=== PATIENT | female | born 1955 | race African-American/Black ===

== ENCOUNTER 2018-11-14 17:23 | Emergency (ER) | payer BC ==
[~2018-11-14] VITALS: Ht 154.9 cm; Wt 63.0 kg
[~2018-11-14 17:23] MED LIST: ASPI-1393 PO; CO Q10 PO; CYAN10009 PO; NEBI5TAB3 PO; TRIA1TAB92 PO; [UNRECOGNIZED DRUG - OTHER] PO; [UNRECOGNIZED DRUG - OTHER] PO; [UNRECOGNIZED DRUG - OTHER] PO
[2018-11-14 17:31] VITALS: BP 156/70
== END 2018-11-14 19:17 | disposition home or self-care (01) ==
LOC: ER 17:23
DX: S62.615A Displaced fracture of proximal phalanx of left ring finger, initial encounter for closed fracture (principal); S62.617A Displaced fracture of proximal phalanx of left little finger, initial encounter for closed fracture; S01.511A Laceration without foreign body of lip, initial encounter; I10 Essential (primary) hypertension; Z98.890 Other specified postprocedural states; Z88.6 Allergy status to analgesic agent; Z88.8 Allergy status to other drugs, medicaments and biological substances; Z79.82 Long term (current) use of aspirin; Z79.899 Other long term (current) drug therapy; W01.0XXA Fall on same level from slipping, tripping and stumbling without subsequent striking against object, initial encounter; Y93.89 Activity, other specified; Y92.89 Other specified places as the place of occurrence of the external cause; Y99.8 Other external cause status
CPT/HCPCS: 29125; 73130; 99283

== ENCOUNTER → 2018-11-27 | Outpatient (CLI) | payer BC ==
[~2018-11-27] MED LIST changes: +ASPI-1159 PO; -ASPI-1393 PO
== END | disposition home or self-care (01) ==
LOC: RAD 07:18
PROVIDERS: ATTEND Internal Medicine Geriatric Medicine
DX: S62.665A Nondisplaced fracture of distal phalanx of left ring finger, initial encounter for closed fracture (principal); S62.667A Nondisplaced fracture of distal phalanx of left little finger, initial encounter for closed fracture; M19.042 Primary osteoarthritis, left hand; M85.842 Other specified disorders of bone density and structure, left hand; X58.XXXA Exposure to other specified factors, initial encounter; Y93.89 Activity, other specified; Y92.89 Other specified places as the place of occurrence of the external cause; Y99.8 Other external cause status
CPT/HCPCS: 73130

== ENCOUNTER → 2018-11-28 | Outpatient (CLI) | payer BC ==
[~2018-11-28] MED LIST changes: -ASPI-1159 PO; +ASPI-1393 PO
== END | disposition home or self-care (01) ==
LOC: RAD 13:25
PROVIDERS: ATTEND Orthopaedic Surgery
DX: S62.605A Fracture of unspecified phalanx of left ring finger, initial encounter for closed fracture (principal); S62.607A Fracture of unspecified phalanx of left little finger, initial encounter for closed fracture; J31.0 Chronic rhinitis; R22.1 Localized swelling, mass and lump, neck; R22.0 Localized swelling, mass and lump, head; E07.9 Disorder of thyroid, unspecified; X58.XXXA Exposure to other specified factors, initial encounter; Y93.89 Activity, other specified; Y92.89 Other specified places as the place of occurrence of the external cause; Y99.8 Other external cause status
CPT/HCPCS: 70486; 70490; 73130

== ENCOUNTER → 2018-12-05 | Day surgery (SDC) | payer BC ==
[~2018-12-05] MED LIST changes: +LIDOCAINE HCL 1% 20ML VIAL (Pyxis) INJ ONE; +SODIUM BICARBONATE 4% (2.4MEQ) 5ML VIAL IV ONE
== END | disposition home or self-care (01) ==
LOC: RAD 12:38
PROVIDERS: ATTEND Internal Medicine Geriatric Medicine
DX: K11.6 Mucocele of salivary gland (principal); K11.8 Other diseases of salivary glands
CPT/HCPCS: 10005; 88172; 88173; J3490

== ENCOUNTER → 2018-12-18 | Outpatient (CLI) | payer BC ==
[~2018-12-18] MED LIST changes: -LIDOCAINE HCL 1% 20ML VIAL (Pyxis) INJ ONE; -SODIUM BICARBONATE 4% (2.4MEQ) 5ML VIAL IV ONE
== END | disposition home or self-care (01) ==
LOC: RAD 11:18
PROVIDERS: ATTEND Internal Medicine Geriatric Medicine
DX: M79.642 Pain in left hand (principal)
CPT/HCPCS: 73130

== ENCOUNTER → 2019-02-07 | Outpatient (CLI) | payer BC ==
[~2019-02-07] MED LIST changes: +CYAN-50 PO; -CYAN10009 PO
== END | disposition home or self-care (01) ==
LOC: RAD 09:44
PROVIDERS: ATTEND Orthopaedic Surgery
DX: M19.042 Primary osteoarthritis, left hand (principal); S62.617D Displaced fracture of proximal phalanx of left little finger, subsequent encounter for fracture with routine healing; S62.615D Displaced fracture of proximal phalanx of left ring finger, subsequent encounter for fracture with routine healing; X58.XXXD Exposure to other specified factors, subsequent encounter
CPT/HCPCS: 73130

== ENCOUNTER 2019-11-25 08:57 | Inpatient (IN) | payer BC ==
[~2019-11-25] VITALS: Ht 152.4 cm; Wt 64.4 kg
[~2019-11-25 08:57] MED LIST changes: -ASPI-1393 PO; +ASPI-1497 PO
[2019-11-25 09:54] LABS: BASOPHILS % 0.7 % (0.0-2.0); EOSINOPHILS % 3.6 % (0.0-5.0); LYMPHOCYTES % 13.3 % (20.0-50.0); MEAN CORPUSCULAR VOLUME 89.8 fL (81.0-99.0); MEAN PLATELET VOLUME 9.1 fl (7.4-10.4); MONOCYTES % 7.8 % (2.0-8.0); NEUTROPHILS % 74.6 % (40.0-76.0); PLATELET 162 x1000/uL (130-400); RED BLOOD CELL COUNT 1.55 mill/uL (4.2-5.4); RED CELL DISTRIBUTION WIDTH 15.2 % (11.6-14.6)
[2019-11-25 10:00] LABS: CHLORIDE 112 mEq/L (98-107)
[2019-11-25 10:07] LABS: HEMOGLOBIN. 4.7 g/dL (12.0-16.0)
[2019-11-25 10:08] LABS: HEMATOCRIT. 13.9 % (36.0-48.0)
[2019-11-25] MEDS ORDERED: SODIUM CHLORIDE 0.9% 250 ML IV ONE (11:57)
[2019-11-25 12:01] LABS: INR 0.9; PROTHROMBIN TIME 9.8 sec (9.6-11.0)
[2019-11-25] MEDS ORDERED: ONDANSETRON HCL 4MG/2ML INJ IV PRN (12:15)
[2019-11-25] MEDS ORDERED: DIPHENHYDRAMINE 50MG/ML VIAL IV PRN (12:15)
[2019-11-25] MEDS: DEXT 5%/0.45% NACL 1000ML 1,000 ML IV SCH ×2 (12:30→22:21)
[2019-11-25 17:20] LABS: CREATINE KINASE MB FRACTION 2.7 ng/mL (0.5-3.6)
[2019-11-25 18:52] LABS: CLARITY URINE CLEAR (CLEAR); COLOR URINE YELLOW (YELLOW); KETONES URINE NEGATIVE (NEGATIVE); LEUKOCYTE ESTERASE URINE TRACE (NEGATIVE); NITRITE URINE NEGATIVE (NEGATIVE); OCCULT BLOOD URINE TRACE (NEGATIVE); PROTEIN URINE 1+ (NEGATIVE); SPECIFIC GRAVITY URINE 1.013 (1.005-1.030); UROBILINOGEN URINE 0.2 E.U./dL (0.2-1.0)
[2019-11-25 21:16] LABS: BASOPHILS % 0.6 % (0.0-2.0); LYMPHOCYTES % 14.2 % (20.0-50.0); MEAN CORPUSCULAR VOLUME 91.7 fL (81.0-99.0); MEAN PLATELET VOLUME 8.5 fl (7.4-10.4); MONOCYTES % 10.8 % (2.0-8.0); NEUTROPHILS % 70.4 % (40.0-76.0); PLATELET 131 x1000/uL (130-400); RED CELL DISTRIBUTION WIDTH 14.6 % (11.6-14.6)
[2019-11-25 21:20] LABS: HEMOGLOBIN. 5.6 g/dL (12.0-16.0)
[2019-11-25 21:21] LABS: HEMATOCRIT. 16.5 % (36.0-48.0)
[2019-11-25] MEDS: CITRIC ACID/SODIUM CITRATE SOLN 30ML UDC PO SCH (22:18)
[2019-11-25 22:23] VITALS: BP 130/73
[2019-11-25] MEDS ORDERED: ALBUTEROL 6.7GM HFA INHALER ORI PRN (22:30)
[2019-11-25] MEDS ORDERED: ALBUTEROL (0.083%) 2.5MG/3ML NEB HHN PRN (22:45)
[2019-11-25] MEDS ORDERED: ZINC50TA69 MT (23:39)
[2019-11-25] MEDS ORDERED: ALBU6.7H9 INH (23:39)
[2019-11-26] VITALS (14 sets, daily range): BP systolic 134–170; BP diastolic 51–82
[2019-11-26] MEDS ORDERED: PANTOPRAZOLE 40MG DR TABLET PO NR (08:15)
[2019-11-26 08:18] LABS: BASOPHILS % 0.5 % (0.0-2.0); EOSINOPHILS % 4.5 % (0.0-5.0); LYMPHOCYTES % 14.6 % (20.0-50.0); MEAN CORPUSCULAR HEMOGLOBIN 30.4 pg (28.0-32.0); MEAN CORPUSCULAR VOLUME 89.7 fL (81.0-99.0); MEAN PLATELET VOLUME 8.5 fl (7.4-10.4); MONOCYTES % 9.9 % (2.0-8.0); NEUTROPHILS % 70.5 % (40.0-76.0); PLATELET 140 x1000/uL (130-400); RED BLOOD CELL COUNT 1.85 mill/uL (4.2-5.4); RED CELL DISTRIBUTION WIDTH 14.7 % (11.6-14.6)
[2019-11-26 08:35] LABS: HEMATOCRIT. 16.6 % (36.0-48.0); HEMOGLOBIN. 5.6 g/dL (12.0-16.0)
[2019-11-26 08:46] LABS: CREATINE KINASE MB FRACTION 2.9 ng/mL (0.5-3.6)
[2019-11-26] MEDS ORDERED: AMLODIPINE 2.5MG TABLET PO SCH (09:00)
[2019-11-26] MEDS: DEXT 5%/0.45% NACL 1000ML 1,000 ML IV SCH (09:00)
[2019-11-26] MEDS: CITRIC ACID/SODIUM CITRATE SOLN 30ML UDC PO SCH ×3 (09:09→18:48)
[2019-11-26] MEDS: FOLIC ACID/VITAMIN B COMP W-C TABLET PO SCH (09:09)
[2019-11-26] MEDS ORDERED: POTASSIUM CHLORIDE 20MEQ TABLET SR PO NR (09:15)
[2019-11-26] MEDS ORDERED: ERGOCALCIFEROL 50000UNITS CAPSULE PO SCH (11:00)
[2019-11-26 11:39] LABS: VITAMIN B12 SERUM 485 pg/mL (211-911)
[2019-11-26 13:47] LABS: HEPATITIS B SURFACE ANTIGEN NEGATIVE
[2019-11-26] MEDS: POTASSIUM CHLORIDE 20MEQ TABLET SR PO SCH (13:50)
[2019-11-26] MEDS: CYANOCOBALAMIN 1000MCG/ML VIAL IM SCH (13:50)
[2019-11-26] MEDS: HYDRALAZINE HCL 25MG TABLET PO SCH ×2 (14:11→22:09)
[2019-11-26 14:15] LABS: HEPATITIS A AB IGM NEGATIVE (NEGATIVE)
[2019-11-26 14:18] LABS: CARCINO EMBRYONIC ANTIGEN < 0.5 ng/ml
[2019-11-26] MEDS: PANTOPRAZOLE 40MG DR TABLET PO SCH (22:09)
[2019-11-27] VITALS (8 sets, daily range): BP systolic 144–179; BP diastolic 76–90
[2019-11-27] MEDS ORDERED: HYDRALAZINE HCL 25MG TABLET PO NR (01:15)
[2019-11-27 02:52] LABS: HEMOGLOBIN 8.2 g/dL (12.0-16.0)
[2019-11-27] MEDS: DEXT 5%/0.45% NACL 1000ML 1,000 ML IV SCH (04:02)
[2019-11-27] MEDS ORDERED: MORPHINE SULFATE 2 MG/ML CPJ (NOT FOR IM USE) IV PRN (05:15)
[2019-11-27] MEDS: PANTOPRAZOLE 40MG DR TABLET PO SCH ×2 (05:46→21:00)
[2019-11-27] MEDS: HYDRALAZINE HCL 50MG TABLET PO SCH ×3 (05:46→21:00)
[2019-11-27 09:08] LABS: ALBUMIN 3.4 g/dL (2.9-4.4); ALPHA-1-GLOBULIN 0.2 g/dL (0.0-0.4); ALPHA-2-GLOBULIN 0.8 g/dL (0.4-1.0); BETA GLOBULIN 0.8 g/dL (0.7-1.3); GAMMA GLOBULINS 1.5 g/dL (0.4-1.8); GLOBULIN TOTAL 3.3 g/dL (2.2-3.9); M-SPIKE Not Observed g/dL (Not Observed); TOTAL PROTEIN SERUM 6.7 g/dL (6.0-8.5)
[2019-11-27 09:20] LABS: BASOPHILS % 0.6 % (0.0-2.0); EOSINOPHILS % 2.3 % (0.0-5.0); HEMATOCRIT. 26.6 % (36.0-48.0); LYMPHOCYTES % 10.7 % (20.0-50.0); MEAN PLATELET VOLUME 8.7 fl (7.4-10.4); NEUTROPHILS % 77.4 % (40.0-76.0); PLATELET 139 x1000/uL (130-400); RED BLOOD CELL COUNT 3.02 mill/uL (4.2-5.4); RED CELL DISTRIBUTION WIDTH 14.6 % (11.6-14.6)
[2019-11-27] MEDS: CITRIC ACID/SODIUM CITRATE SOLN 30ML UDC PO SCH ×3 (09:31→17:23)
[2019-11-27] MEDS: POTASSIUM CHLORIDE 20MEQ TABLET SR PO SCH (09:31)
[2019-11-27] MEDS: FOLIC ACID/VITAMIN B COMP W-C TABLET PO SCH (09:31)
[2019-11-27] MEDS: CYANOCOBALAMIN 1000MCG/ML VIAL IM SCH (09:31)
[2019-11-27] MEDS: NEBIVOLOL HCL 5 MG TABLET PO SCH (12:06)
[2019-11-27] MEDS: ALPRAZOLAM 0.25 MG TABLET PO SCH ×2 (13:39→21:00)
[2019-11-27] MEDS: SODIUM BICARBONATE 100 MEQ in SODIUM CHLORIDE 0.45% 900 ML IV SCH (13:39)
[2019-11-27 15:08] LABS: ANTI-NUCLEAR ANTIBODIES DIRECT Negative (Negative)
[2019-11-27] MEDS ORDERED: POTASSIUM CHLORIDE 20MEQ TABLET SR PO SCH (17:00)
[2019-11-28] VITALS: BP 140/62
[2019-11-28] MEDS: SODIUM BICARBONATE 100 MEQ in SODIUM CHLORIDE 0.45% 900 ML IV SCH ×2 (03:10→18:18)
[2019-11-28 04:00] VITALS: BP 153/81
[2019-11-28 06:08] LABS: BASOPHILS % 0.4 % (0.0-2.0); EOSINOPHILS % 2.7 % (0.0-5.0); HEMATOCRIT. 24.5 % (36.0-48.0); HEMOGLOBIN. 8.6 g/dL (12.0-16.0); LYMPHOCYTES % 9.6 % (20.0-50.0); MEAN CORPUSCULAR HEMOGLOBIN 30.6 pg (28.0-32.0); MEAN PLATELET VOLUME 9.2 fl (7.4-10.4); MONOCYTES % 10.7 % (2.0-8.0); NEUTROPHILS % 76.6 % (40.0-76.0); PLATELET 137 x1000/uL (130-400); RED BLOOD CELL COUNT 2.81 mill/uL (4.2-5.4); RED CELL DISTRIBUTION WIDTH 14.8 % (11.6-14.6)
[2019-11-28] MEDS: PANTOPRAZOLE 40MG DR TABLET PO SCH ×2 (07:04→22:34)
[2019-11-28] MEDS: HYDRALAZINE HCL 50MG TABLET PO SCH ×3 (07:04→22:34)
[2019-11-28] MEDS: ALPRAZOLAM 0.25 MG TABLET PO SCH ×3 (07:04→22:35)
[2019-11-28 07:17] LABS: PHOSPHORUS 8.4 mg/dL (2.5-4.9)
[2019-11-28 08:00] VITALS: BP 152/82
[2019-11-28] MEDS ORDERED: POTASSIUM CHLORIDE INJ 40 MEQ in SODIUM CHLORIDE 0.9% 250 ML IV SCH (10:00)
[2019-11-28] MEDS: CITRIC ACID/SODIUM CITRATE SOLN 30ML UDC PO SCH ×3 (10:16→18:19)
[2019-11-28] MEDS: POTASSIUM CHLORIDE 20MEQ TABLET SR PO SCH (10:16)
[2019-11-28] MEDS: FOLIC ACID/VITAMIN B COMP W-C TABLET PO SCH (10:16)
[2019-11-28] MEDS: CYANOCOBALAMIN 1000MCG/ML VIAL IM SCH (10:17)
[2019-11-28] MEDS: NEBIVOLOL HCL 5 MG TABLET PO SCH (10:17)
[2019-11-28 12:00] VITALS: BP 135/81
[2019-11-28] MEDS: CALCIUM ACETATE 667MG CAPSULE PO SCH ×2 (13:04→18:19)
[2019-11-28] MEDS: TRAMADOL 50MG TABLET PO PRN (14:20)
[2019-11-28 16:00] VITALS: BP 128/58
[2019-11-28] MEDS ORDERED: POTASSIUM CHLORIDE INJ 40 MEQ in DEXT 5% WATER 250 ML IV SCH (16:00)
[2019-11-28 20:00] VITALS: BP 154/79
[2019-11-29] VITALS (10 sets, daily range): BP systolic 126–153; BP diastolic 58–75
[2019-11-29] MEDS: PANTOPRAZOLE 40MG DR TABLET PO SCH ×2 (06:46→22:36)
[2019-11-29] MEDS: CALCIUM ACETATE 667MG CAPSULE PO SCH ×3 (06:46→17:39)
[2019-11-29] MEDS: HYDRALAZINE HCL 50MG TABLET PO SCH (06:47)
[2019-11-29] MEDS: ALPRAZOLAM 0.25 MG TABLET PO SCH ×3 (06:48→22:37)
[2019-11-29 07:49] LABS: BASOPHILS % 0.3 % (0.0-2.0); EOSINOPHILS % 1.8 % (0.0-5.0); HEMATOCRIT. 22.1 % (36.0-48.0); HEMOGLOBIN. 7.8 g/dL (12.0-16.0); LYMPHOCYTES % 7.7 % (20.0-50.0); MEAN CORPUSCULAR HEMOGLOBIN 30.8 pg (28.0-32.0); MEAN CORPUSCULAR VOLUME 86.6 fL (81.0-99.0); MEAN PLATELET VOLUME 8.7 fl (7.4-10.4); MONOCYTES % 12.5 % (2.0-8.0); NEUTROPHILS % 77.7 % (40.0-76.0); PLATELET 117 x1000/uL (130-400); RED BLOOD CELL COUNT 2.55 mill/uL (4.2-5.4); RED CELL DISTRIBUTION WIDTH 14.7 % (11.6-14.6)
[2019-11-29] MEDS: CYANOCOBALAMIN 1000MCG/ML VIAL IM SCH (10:00)
[2019-11-29] MEDS: CITRIC ACID/SODIUM CITRATE SOLN 30ML UDC PO SCH ×3 (10:00→17:38)
[2019-11-29] MEDS: FOLIC ACID/VITAMIN B COMP W-C TABLET PO SCH (10:01)
[2019-11-29] MEDS: NEBIVOLOL HCL 5 MG TABLET PO SCH (10:01)
[2019-11-29] MEDS: POTASSIUM CHLORIDE 20MEQ TABLET SR PO SCH (10:01)
[2019-11-29] MEDS: SODIUM CHLORIDE 0.45% 1,000 ML IV SCH (10:45)
[2019-11-29 11:09] LABS: HEMATOCRIT 22.4 % (36.0-48.0)
[2019-11-29] MEDS ORDERED: HYDRALAZINE HCL 50MG TABLET PO SCH (14:00)
[2019-11-29] MEDS: HYDRALAZINE HCL 25MG TABLET PO SCH (22:36)
[2019-11-30] VITALS: BP 138/68
[2019-11-30 00:53] LABS: HEMATOCRIT 25.2 % (36.0-48.0); HEMOGLOBIN 8.9 g/dL (12.0-16.0)
[2019-11-30] MEDS: TRAMADOL 50MG TABLET PO PRN (00:54)
[2019-11-30 04:00] VITALS: BP 142/66
[2019-11-30] MEDS: SODIUM CHLORIDE 0.45% 1,000 ML IV SCH ×2 (04:15→13:51)
[2019-11-30 05:11] LABS: DRVVT LA 55.2 sec (0.0-47.0); DRVVT MIX LA 46.5 sec (0.0-47.0); LUPUS ANTICOAG INTERPRETATION Comment: (.); PTT-LA 37.7 sec (0.0-51.9)
[2019-11-30] MEDS: PANTOPRAZOLE 40MG DR TABLET PO SCH (06:14)
[2019-11-30] MEDS: CALCIUM ACETATE 667MG CAPSULE PO SCH ×2 (06:14→12:04)
[2019-11-30] MEDS: HYDRALAZINE HCL 25MG TABLET PO SCH ×2 (06:14→13:51)
[2019-11-30] MEDS: ALPRAZOLAM 0.25 MG TABLET PO SCH ×2 (06:14→13:45)
[2019-11-30 08:00] VITALS: BP 136/76
[2019-11-30 08:17] LABS: BASOPHILS % 0.2 % (0.0-2.0); EOSINOPHILS % 1.5 % (0.0-5.0); HEMATOCRIT. 26.1 % (36.0-48.0); HEMOGLOBIN. 9.1 g/dL (12.0-16.0); LYMPHOCYTES % 9.8 % (20.0-50.0); MEAN CORPUSCULAR HEMOGLOBIN 30.7 pg (28.0-32.0); MEAN PLATELET VOLUME 9.4 fl (7.4-10.4); MONOCYTES % 8.9 % (2.0-8.0); NEUTROPHILS % 79.6 % (40.0-76.0); PLATELET 111 x1000/uL (130-400); RED BLOOD CELL COUNT 2.96 mill/uL (4.2-5.4); RED CELL DISTRIBUTION WIDTH 14.9 % (11.6-14.6)
[2019-11-30] MEDS: CYANOCOBALAMIN 1000MCG/ML VIAL IM SCH (09:01)
[2019-11-30] MEDS: CITRIC ACID/SODIUM CITRATE SOLN 30ML UDC PO SCH ×2 (09:01→13:45)
[2019-11-30] MEDS: POTASSIUM CHLORIDE 20MEQ TABLET SR PO SCH (09:01)
[2019-11-30] MEDS: NEBIVOLOL HCL 5 MG TABLET PO SCH (09:02)
[2019-11-30] MEDS: FOLIC ACID/VITAMIN B COMP W-C TABLET PO SCH (09:03)
[2019-11-30] MEDS ORDERED: PANT40TA4 PO (11:56)
[2019-11-30] MEDS ORDERED: HYDR-4134 PO (11:56)
[2019-11-30] MEDS ORDERED: ALPR0.25 PO (11:56)
[2019-11-30] MEDS ORDERED: CALC667C PO (11:56)
[2019-11-30] MEDS ORDERED: ONDA4VIA22 IV (11:56)
[2019-11-30] MEDS ORDERED: NEPVIT PO (11:56)
[2019-11-30] MEDS ORDERED: NEBI5TAB3 PO (11:56)
[2019-11-30] MEDS ORDERED: CITR473S PO (11:56)
[2019-11-30] MEDS ORDERED: POTA20TA82 PO (11:56)
[2019-11-30 12:00] VITALS: BP 138/65
[2019-11-30] MEDS ORDERED: MAGNESIUM 2 G PREMIX 50 ML IV NR (12:00)
[2019-11-30 14:43] VITALS: BP 138/65
[2019-11-30 16:00] VITALS: BP 124/64
[2019-12-01 13:06] LABS: 25-HYDROXY VITAMIN D3 4.5 ng/mL (.)
== END 2019-11-30 17:28 | disposition home or self-care (01) | DRG 683 ==
LOC: ER 08:57 → MICUSO 11:47 → EDBEDREQ 11:49 → 5WST 22:13
PROVIDERS: ADMIT Internal Medicine Nephrology; ATTEND Internal Medicine Nephrology
PROC: 30233N1 Transfusion of Nonautologous Red Blood Cells into Peripheral Vein, Percutaneous Approach (ICD-10-PCS; principal; 2019-11-25)
DX: N17.9 Acute kidney failure, unspecified (principal); E87.2 Acidosis; D64.9 Anemia, unspecified; E78.5 Hyperlipidemia, unspecified; E87.6 Hypokalemia; K11.1 Hypertrophy of salivary gland; R53.82 Chronic fatigue, unspecified; N18.9 Chronic kidney disease, unspecified; I13.10 Hypertensive heart and chronic kidney disease without heart failure, with stage 1 through stage 4 chronic kidney disease, or unspecified chronic kidney disease; E04.2 Nontoxic multinodular goiter; E83.42 Hypomagnesemia; F41.1 Generalized anxiety disorder; M85.80 Other specified disorders of bone density and structure, unspecified site; Z83.2 Family history of diseases of the blood and blood-forming organs and certain disorders involving the immune mechanism; Z98.891 History of uterine scar from previous surgery; Z79.899 Other long term (current) drug therapy
CPT/HCPCS: 36415; 71045; 76536; 76770; 80048; 80053; 80061; 81003; 82088; 82270; 82306; 82378; 82533; 82550; 82553; 82570; 82575; 82607; 83036; 83540; 83550; 83735; 84100; 84132; 84133; 84155; 84156; 84165; 84244; 84300; 84443; 84484; 84550; 85014; 85018; 85025; 85613; 85732; 86038; 86705; 86709; 86803; 86850; 86900; 86920; 87340; 93005; 93306; 93970; 99291; J3420; J3475; J3480; J3490; J7050; J7060; P9016; U0003-CS

== ENCOUNTER → 2019-12-10 | Outpatient (CLI) | payer BC | END | disposition home or self-care (01) | LOC: LAB 15:47 | PROVIDERS: ATTEND Internal Medicine Geriatric Medicine | DX: I10 Essential (primary) hypertension (principal); E83.42 Hypomagnesemia | CPT/HCPCS: 36415; 80048 ==

== ENCOUNTER → 2019-12-24 | Outpatient (CLI) | payer BC ==
[2019-12-24 12:02] LABS: HEMATOCRIT. 21.8 % (36.0-48.0); HEMOGLOBIN. 7.3 g/dL (12.0-16.0); MEAN CORPUSCULAR HEMOGLOBIN 30.1 pg (28.0-32.0); MEAN CORPUSCULAR VOLUME 89.6 fL (81.0-99.0); MEAN PLATELET VOLUME 7.8 fl (7.4-10.4); PLATELET 160 x1000/uL (130-400); RED BLOOD CELL COUNT 2.43 mill/uL (4.2-5.4); RED CELL DISTRIBUTION WIDTH 14.9 % (11.6-14.6)
[2019-12-24 12:27] LABS: CHLORIDE 114 mEq/L (98-107)
[2019-12-24 12:33] LABS: PHOSPHORUS 5.6 mg/dL (2.5-4.9)
[2019-12-24 13:29] LABS: PLATELET ESTIMATE NORMAL
== END | disposition home or self-care (01) ==
LOC: LAB 11:25
PROVIDERS: ATTEND Internal Medicine Geriatric Medicine
DX: I12.9 Hypertensive chronic kidney disease with stage 1 through stage 4 chronic kidney disease, or unspecified chronic kidney disease (principal); N18.4 Chronic kidney disease, stage 4 (severe); D63.1 Anemia in chronic kidney disease
CPT/HCPCS: 36415; 80053; 84100; 84550; 85025

== ENCOUNTER → 2020-01-21 | Outpatient (CLI) | payer BC ==
[~2020-01-21] MED LIST changes: -ASPI-1497 PO; +CALC667T6 MT; -CO Q10 PO; -CYAN-50 PO; +EPOE200014 SQ; +FOLI1TAB87 MT; +HYDR100T26 MT; +NEBI2.5T2 MT; -NEBI5TAB3 PO; +PROT20 MT; -TRIA1TAB92 PO; -[UNRECOGNIZED DRUG - OTHER] PO; -[UNRECOGNIZED DRUG - OTHER] PO; -[UNRECOGNIZED DRUG - OTHER] PO
[2020-01-21 09:47] LABS: BASOPHILS % 0.6 % (0.0-2.0); EOSINOPHILS % 5.2 % (0.0-5.0); LYMPHOCYTES % 17.7 % (20.0-50.0); MEAN CORPUSCULAR HEMOGLOBIN 29.9 pg (28.0-32.0); MEAN CORPUSCULAR VOLUME 91.3 fL (81.0-99.0); MEAN PLATELET VOLUME 7.8 fl (7.4-10.4); MONOCYTES % 8.7 % (2.0-8.0); NEUTROPHILS % 67.8 % (40.0-76.0); PLATELET 153 x1000/uL (130-400); RED BLOOD CELL COUNT 1.94 mill/uL (4.2-5.4); RED CELL DISTRIBUTION WIDTH 18.9 % (11.6-14.6)
[2020-01-21 10:05] LABS: CHLORIDE 113 mEq/L (98-107)
[2020-01-21 10:32] LABS: HEMATOCRIT. 17.7 % (36.0-48.0); HEMOGLOBIN. 5.8 g/dL (12.0-16.0)
== END | disposition home or self-care (01) ==
LOC: LAB 09:16
PROVIDERS: ATTEND Internal Medicine Geriatric Medicine
DX: I12.9 Hypertensive chronic kidney disease with stage 1 through stage 4 chronic kidney disease, or unspecified chronic kidney disease (principal); N18.9 Chronic kidney disease, unspecified
CPT/HCPCS: 36415; 80053; 85025

== ENCOUNTER 2020-01-22 12:45 | Inpatient (IN) | payer BC ==
[~2020-01-22] VITALS: Ht 154.9 cm; Wt 57.6 kg
[2020-01-22 12:00] VITALS: BP 162/78
[2020-01-22 13:30] VITALS: BP 162/78
[2020-01-22] MEDS ORDERED: FUROSEMIDE 40MG TABLET PO SCH (14:00)
[2020-01-22] MEDS ORDERED: PROT20 MT (14:02)
[2020-01-22] MEDS ORDERED: NEBI2.5T2 MT (14:02)
[2020-01-22] MEDS ORDERED: HYDR100T26 MT (14:02)
[2020-01-22] MEDS ORDERED: CALC667T6 MT (14:02)
[2020-01-22] MEDS ORDERED: FOLI1TAB87 MT (14:02)
[2020-01-22] MEDS ORDERED: ONDANSETRON HCL 4MG/2ML INJ IV PRN (14:15)
[2020-01-22] MEDS ORDERED: ACETAMINOPHEN 325MG TABLET PO PRN (14:15)
[2020-01-22] MEDS ORDERED: DIPHENHYDRAMINE 50MG/ML VIAL IV PRN (14:15)
[2020-01-22] MEDS: SODIUM CHLORIDE 0.45% 1,000 ML IV SCH (15:00)
[2020-01-22] MEDS ORDERED: PANTOPRAZOLE 40MG DR TABLET PO NR (15:00)
[2020-01-22 16:00] VITALS: BP 163/80
[2020-01-22] MEDS: CITRIC ACID/SODIUM CITRATE SOLN 30ML UDC PO SCH ×2 (16:20→22:35)
[2020-01-22 16:45] LABS: BASOPHILS % 0.7 % (0.0-2.0); EOSINOPHILS % 3.2 % (0.0-5.0); LYMPHOCYTES % 14.2 % (20.0-50.0); MEAN CORPUSCULAR HEMOGLOBIN 30.7 pg (28.0-32.0); MEAN CORPUSCULAR VOLUME 92.9 fL (81.0-99.0); MEAN PLATELET VOLUME 7.9 fl (7.4-10.4); MONOCYTES % 9.2 % (2.0-8.0); NEUTROPHILS % 72.7 % (40.0-76.0); PLATELET 161 x1000/uL (130-400); RED BLOOD CELL COUNT 1.99 mill/uL (4.2-5.4); RED CELL DISTRIBUTION WIDTH 19.4 % (11.6-14.6)
[2020-01-22 16:55] LABS: TOTAL IRON BINDING CAPACITY 184 ug/dL (250-450)
[2020-01-22 17:01] LABS: HEMATOCRIT. 18.5 % (36.0-48.0); HEMOGLOBIN. 6.1 g/dL (12.0-16.0)
[2020-01-22] MEDS: CALCIUM ACETATE 667MG CAPSULE PO SCH (17:44)
[2020-01-22 19:33] LABS: CLARITY URINE CLEAR (CLEAR); COLOR URINE YELLOW (YELLOW); KETONES URINE 2+ (NEGATIVE); LEUKOCYTE ESTERASE URINE NEGATIVE (NEGATIVE); NITRITE URINE NEGATIVE (NEGATIVE); OCCULT BLOOD URINE TRACE (NEGATIVE); PROTEIN URINE 2+ (NEGATIVE); SPECIFIC GRAVITY URINE 1.018 (1.005-1.030); UROBILINOGEN URINE 0.2 E.U./dL (0.2-1.0)
[2020-01-22 20:00] VITALS: BP 172/69
[2020-01-22] MEDS ORDERED: ZOLPIDEM TARTRATE 5MG TABLET PO PRN (21:00)
[2020-01-22] MEDS ORDERED: EPOETIN ALFA 10000UNITS/ML VIAL SUBCUT SCH (21:00)
[2020-01-22] MEDS: HYDRALAZINE HCL 100MG TABLET PO SCH (22:35)
[2020-01-22] MEDS: PANTOPRAZOLE 40MG DR TABLET PO SCH (22:35)
[2020-01-22 23:30] VITALS: BP 161/69
[2020-01-22 23:51] VITALS: BP 155/66
[2020-01-23] VITALS (21 sets, daily range): BP systolic 138–169; BP diastolic 63–83
[2020-01-23] MEDS: CITRIC ACID/SODIUM CITRATE SOLN 30ML UDC PO SCH ×4 (04:17→22:26)
[2020-01-23] MEDS: PANTOPRAZOLE 40MG DR TABLET PO SCH ×2 (06:08→21:38)
[2020-01-23] MEDS: HYDRALAZINE HCL 100MG TABLET PO SCH ×3 (06:17→21:39)
[2020-01-23] MEDS: CALCIUM ACETATE 667MG CAPSULE PO SCH ×3 (07:50→18:13)
[2020-01-23 09:38] LABS: BASOPHILS % 0.7 % (0.0-2.0); EOSINOPHILS % 3.2 % (0.0-5.0); HEMATOCRIT. 24.1 % (36.0-48.0); HEMOGLOBIN. 8.3 g/dL (12.0-16.0); MEAN CORPUSCULAR HEMOGLOBIN 30.5 pg (28.0-32.0); MEAN CORPUSCULAR VOLUME 88.4 fL (81.0-99.0); MEAN PLATELET VOLUME 8.2 fl (7.4-10.4); MONOCYTES % 12.2 % (2.0-8.0); NEUTROPHILS % 68.9 % (40.0-76.0); PLATELET 142 x1000/uL (130-400); RED BLOOD CELL COUNT 2.73 mill/uL (4.2-5.4)
[2020-01-23 09:45] LABS: PROTHROMBIN TIME 10.3 sec (9.6-11.0)
[2020-01-23] MEDS ORDERED: LIDOCAINE HCL 1% 20ML VIAL (Pyxis) INJ ONE (10:23)
[2020-01-23] MEDS ORDERED: SODIUM BICARBONATE 4% (2.4MEQ) 5ML VIAL IV ONE (10:23)
[2020-01-23] MEDS ORDERED: FENTANYL CITRATE/PF 50MCG/ML 2ML VIAL ONE (10:37)
[2020-01-23] MEDS ORDERED: POTASSIUM CHLORIDE 20MEQ TABLET SR PO NR (11:45)
[2020-01-23] MEDS: CYANOCOBALAMIN 1000MCG TABLET PO SCH (12:09)
[2020-01-23] MEDS: DOCUSATE SODIUM 250MG CAPSULE PO SCH (12:09)
[2020-01-23] MEDS: FOLIC ACID/VITAMIN B COMP W-C TABLET PO SCH (12:09)
[2020-01-23] MEDS: NEBIVOLOL HCL 5 MG TABLET PO SCH (12:10)
[2020-01-23 14:40] LABS: HEMATOCRIT 22.8 % (36.0-48.0); HEMOGLOBIN 7.8 g/dL (12.0-16.0)
[2020-01-23] MEDS: SODIUM CHLORIDE 0.45% 1,000 ML IV SCH (17:40)
[2020-01-24] VITALS: BP 156/81
[2020-01-24] MEDS: CITRIC ACID/SODIUM CITRATE SOLN 30ML UDC PO SCH ×2 (02:58→09:31)
[2020-01-24 04:00] VITALS: BP 162/75
[2020-01-24] MEDS: HYDRALAZINE HCL 100MG TABLET PO SCH ×2 (05:08→13:59)
[2020-01-24] MEDS: SODIUM CHLORIDE 0.45% 1,000 ML IV SCH (06:09)
[2020-01-24] MEDS: PANTOPRAZOLE 40MG DR TABLET PO SCH (06:10)
[2020-01-24 06:48] LABS: BASOPHILS % 0.3 % (0.0-2.0); EOSINOPHILS % 2.7 % (0.0-5.0); HEMATOCRIT. 26.2 % (36.0-48.0); LYMPHOCYTES % 12.2 % (20.0-50.0); MEAN CORPUSCULAR HEMOGLOBIN 30.3 pg (28.0-32.0); MEAN PLATELET VOLUME 8.5 fl (7.4-10.4); MONOCYTES % 14.9 % (2.0-8.0); NEUTROPHILS % 69.9 % (40.0-76.0); PLATELET 131 x1000/uL (130-400); RED BLOOD CELL COUNT 2.98 mill/uL (4.2-5.4); RED CELL DISTRIBUTION WIDTH 16.6 % (11.6-14.6)
[2020-01-24 08:00] VITALS: BP 157/72
[2020-01-24 08:10] LABS: FOLIC ACID (FOLATE) SERUM > 20.00 ng/mL (>5.38)
[2020-01-24 08:21] LABS: VITAMIN B12 SERUM 1018 pg/mL (211-911)
[2020-01-24] MEDS ORDERED: POTASSIUM CHLORIDE 20MEQ TABLET SR PO SCH (08:45)
[2020-01-24] MEDS ORDERED: MAGNESIUM 2 G PREMIX 50 ML IV ONE (08:45)
[2020-01-24] MEDS ORDERED: EPOE200014 SQ (08:56)
[2020-01-24] MEDS: DOCUSATE SODIUM 250MG CAPSULE PO SCH (09:00)
[2020-01-24 09:10] LABS: IMMUNOGLOBULIN A 216 mg/dL (87-352); IMMUNOGLOBULIN G 1455 mg/dL (586-1602); IMMUNOGLOBULIN M 58 mg/dL (26-217)
[2020-01-24] MEDS: CALCIUM ACETATE 667MG CAPSULE PO SCH ×2 (09:32→12:50)
[2020-01-24] MEDS: CYANOCOBALAMIN 1000MCG TABLET PO SCH (09:32)
[2020-01-24] MEDS: FOLIC ACID/VITAMIN B COMP W-C TABLET PO SCH (09:32)
[2020-01-24] MEDS: NEBIVOLOL HCL 5 MG TABLET PO SCH (09:32)
[2020-01-24] MEDS ORDERED: POTASSIUM CHLORIDE INJ 40 MEQ in DEXT 5% WATER 250 ML IV SCH (10:00)
[2020-01-24 10:56] LABS: FERRITIN 356 ng/mL (10-291)
[2020-01-24 12:00] VITALS: BP 154/77
[2020-01-24 14:30] VITALS: BP 154/77
[2020-01-25 09:06] LABS: FOLATE HEMATOCRIT 26.8 % (34.0-46.6)
[2020-01-25 13:07] LABS: FOLATE RBC 1817 ng/mL (>498)
== END 2020-01-24 15:05 | disposition home or self-care (01) | DRG 811 ==
LOC: 6EST 12:45
PROVIDERS: ADMIT Internal Medicine Geriatric Medicine; ATTEND Internal Medicine Geriatric Medicine
PROC: 30233N1 Transfusion of Nonautologous Red Blood Cells into Peripheral Vein, Percutaneous Approach (ICD-10-PCS; principal; 2020-01-22)
DX: D64.9 Anemia, unspecified (principal); N18.6 End stage renal disease; N17.9 Acute kidney failure, unspecified; I13.11 Hypertensive heart and chronic kidney disease without heart failure, with stage 5 chronic kidney disease, or end stage renal disease; E87.2 Acidosis; I87.2 Venous insufficiency (chronic) (peripheral); R53.82 Chronic fatigue, unspecified; F41.1 Generalized anxiety disorder; E78.5 Hyperlipidemia, unspecified; M19.90 Unspecified osteoarthritis, unspecified site; M10.9 Gout, unspecified; E87.8 Other disorders of electrolyte and fluid balance, not elsewhere classified; E83.42 Hypomagnesemia; Z88.6 Allergy status to analgesic agent; Z91.09 Other allergy status, other than to drugs and biological substances; Z99.2 Dependence on renal dialysis; Z91.15 Patient's noncompliance with renal dialysis; Z91.19 Patient's noncompliance with other medical treatment and regimen
CPT/HCPCS: 36415; 71045; 76942; 80048; 81003; 82270; 82378; 82607; 82728; 82746; 82747; 82784; 83010; 83540; 83550; 83615; 83735; 85014; 85018; 85025; 85044; 85049; 85384; 86334; 86850; 86880; 86900; 86920; 88305; 88346; 88348; J0885; J3010; J3480; J3490; J7060; P9016

== ENCOUNTER → 2020-01-22 | Outpatient (CLI) | payer BC | END | disposition home or self-care (01) | LOC: MAMMO 11:10 | PROVIDERS: ATTEND Internal Medicine Geriatric Medicine | DX: Z12.31 Encounter for screening mammogram for malignant neoplasm of breast (principal); N64.89 Other specified disorders of breast; R22.43 Localized swelling, mass and lump, lower limb, bilateral | CPT/HCPCS: 77067; 93970 ==

== ENCOUNTER 2020-04-04 17:08 | Inpatient (IN) | payer BC ==
[~2020-04-04] VITALS: Ht 152.4 cm; Wt 60.3 kg
[~2020-04-04 17:08] MED LIST changes: -NEBI10TA2 MT; -SODI100G3 MC
[2020-04-04] MEDS ORDERED: NEBI10TA2 MT (18:49)
[2020-04-04] MEDS ORDERED: SODI100G3 MC (18:50)
[2020-04-04 20:00] VITALS: BP 163/78
[2020-04-04] MEDS: HYDRALAZINE HCL 100MG TABLET PO SCH (20:58)
[2020-04-04] MEDS ORDERED: CLONIDINE 0.2MG TABLET PO PRN (22:30)
[2020-04-04 23:20] VITALS: BP 148/77
[2020-04-05] VITALS (18 sets, daily range): BP systolic 117–177; BP diastolic 64–80
[2020-04-05] MEDS ORDERED: LIDOCAINE HCL 1% 20ML VIAL (Pyxis) INJ ONE (08:15)
[2020-04-05 08:20] LABS: BASOPHILS % 0.5 % (0.0-2.0); EOSINOPHILS % 2.1 % (0.0-5.0); LYMPHOCYTES % 7.3 % (20.0-50.0); MEAN CORPUSCULAR HEMOGLOBIN 29.7 pg (28.0-32.0); MEAN CORPUSCULAR VOLUME 92.5 fL (81.0-99.0); MEAN PLATELET VOLUME 8.8 fl (7.4-10.4); MONOCYTES % 11.4 % (2.0-8.0); NEUTROPHILS % 78.7 % (40.0-76.0); PLATELET 117 x1000/uL (130-400); RED CELL DISTRIBUTION WIDTH 15.1 % (11.6-14.6)
[2020-04-05 08:30] LABS: HEMATOCRIT. 13.8 % (36.0-48.0); HEMOGLOBIN. 4.4 g/dL (12.0-16.0)
[2020-04-05] MEDS ORDERED: [UNRECOGNIZED DRUG - OTHER] MC SCH (09:00)
[2020-04-05] MEDS ORDERED: [UNRECOGNIZED DRUG - REMARK] MT SCH (09:00)
[2020-04-05] MEDS ORDERED: NEBIVOLOL HCL MT SCH (09:00)
[2020-04-05] MEDS ORDERED: CALCIUM ACETATE MT SCH (09:00)
[2020-04-05] MEDS: CITRIC ACID/SODIUM CITRATE SOLN 30ML UDC PO SCH ×3 (09:59→17:55)
[2020-04-05] MEDS: CALCIUM ACETATE 667MG CAPSULE PO SCH ×3 (09:59→18:24)
[2020-04-05] MEDS: FOLIC ACID/VITAMIN B COMP W-C TABLET PO SCH (10:00)
[2020-04-05] MEDS: HYDRALAZINE HCL 100MG TABLET PO SCH ×3 (10:00→17:56)
[2020-04-05] MEDS: NEBIVOLOL HCL 5 MG TABLET PO SCH (10:00)
[2020-04-05] MEDS ORDERED: SODIUM BICARBONATE 8.4% 1 MEQ/ML 50ML SYR IV NR (11:00)
[2020-04-05] MEDS ORDERED: LIDOCAINE HCL/PF 1% 2ML VIAL ONE (11:00)
[2020-04-05] MEDS: FUROSEMIDE 100MG/10ML VIAL IVP SCH ×2 (12:33→17:55)
[2020-04-05 14:24] LABS: TOTAL IRON BINDING CAPACITY 180 ug/dL (250-450)
[2020-04-05 15:08] LABS: BG BASE EXCESS -10.7 mmol/L (-2.0-2.0); BG CARBOXYHEMOGLOBIN 0.1 % (0.5-1.5); BG DEOXYHEMOGLOBIN 1.5 % (0.0-5.0); BG FRACTION INSPIRED OXYGEN 28; BG HCO3 ACT 13.1 mmol/L (22.0-26.0); BG METHEMOGLOBIN 0.1 % (0.0-1.5); BG OXYGEN SATURATION 98.5 % (92.0-98.5); BG OXYHEMOGLOBIN 98.3 % (94.0-97.0); BG PH 7.394 (7.350-7.450); BG PO2 144.3 mmHg (75.0-100.0); BG SAMPLE SITE LEFT RADIAL; BG TOTAL HEMOGLOBIN 6.2 g/dL (12.0-18.0); BG VENT MODE NASAL CANNULA
[2020-04-05] MEDS ORDERED: IPRATROPIUM/ALBUTEROL 0.5-3(2.5)MG/3ML NEB HHN PRN (15:45)
[2020-04-05] MEDS: IPRATROPIUM/ALBUTEROL 0.5-3(2.5)MG/3ML NEB HHN SCH (20:11)
[2020-04-05 20:51] LABS: MEAN CORPUSCULAR HEMOGLOBIN 28.5 pg (28.0-32.0); MEAN CORPUSCULAR VOLUME 86.5 fL (81.0-99.0); MEAN PLATELET VOLUME 8.5 fl (7.4-10.4); PLATELET 110 x1000/uL (130-400); RED BLOOD CELL COUNT 2.39 mill/uL (4.2-5.4); RED CELL DISTRIBUTION WIDTH 17.9 % (11.6-14.6)
[2020-04-05] MEDS ORDERED: EPOETIN ALFA-EPBX 4,000 UNIT/ML VIAL SUBCUT SCH (21:00)
[2020-04-05 21:11] LABS: HEMATOCRIT. 20.6 % (36.0-48.0); HEMOGLOBIN. 6.8 g/dL (12.0-16.0)
[2020-04-05 22:27] LABS: PLATELET ESTIMATE SLIGHTLY DECREASED
[2020-04-06] VITALS (16 sets, daily range): BP systolic 124–164; BP diastolic 58–93
[2020-04-06] MEDS: IPRATROPIUM/ALBUTEROL 0.5-3(2.5)MG/3ML NEB HHN SCH ×4 (01:42→20:25)
[2020-04-06] MEDS: FUROSEMIDE 100MG/10ML VIAL IVP SCH ×2 (06:54→16:56)
[2020-04-06 08:03] LABS: MEAN CORPUSCULAR HEMOGLOBIN 28.3 pg (28.0-32.0); MEAN CORPUSCULAR VOLUME 84.9 fL (81.0-99.0); MEAN PLATELET VOLUME 8.4 fl (7.4-10.4); PLATELET 108 x1000/uL (130-400); RED BLOOD CELL COUNT 2.26 mill/uL (4.2-5.4); RED CELL DISTRIBUTION WIDTH 18.4 % (11.6-14.6)
[2020-04-06 08:11] LABS: HEMOGLOBIN. 6.4 g/dL (12.0-16.0)
[2020-04-06 08:12] LABS: HEMATOCRIT. 19.1 % (36.0-48.0)
[2020-04-06] MEDS: CITRIC ACID/SODIUM CITRATE SOLN 30ML UDC PO SCH ×3 (08:44→16:55)
[2020-04-06] MEDS: CALCIUM ACETATE 667MG CAPSULE PO SCH ×3 (08:44→17:51)
[2020-04-06] MEDS: NEBIVOLOL HCL 5 MG TABLET PO SCH (08:46)
[2020-04-06] MEDS: HYDRALAZINE HCL 100MG TABLET PO SCH ×3 (08:47→16:56)
[2020-04-06] MEDS: FOLIC ACID/VITAMIN B COMP W-C TABLET PO SCH (08:47)
[2020-04-06] MEDS: POTASSIUM CHLORIDE 20MEQ TABLET SR PO SCH ×2 (09:42→16:56)
[2020-04-06] MEDS ORDERED: KCL 20MEQ/100ML PREMIX 100 ML IV SCH (10:30)
[2020-04-06] MEDS ORDERED: BISACODYL 5MG TABLET PO NR (17:00)
[2020-04-06] MEDS ORDERED: METOCLOPRAMIDE HCL 10MG/2ML VIAL IV NR (17:00)
[2020-04-06] MEDS ORDERED: POTASSIUM CHLORIDE 20MEQ TABLET SR PO ONE (17:30)
[2020-04-06] MEDS ORDERED: SORBITOL 70% SOLN 30ML PO NR (17:30)
[2020-04-06 20:18] LABS: HEMATOCRIT 24.3 % (36.0-48.0); HEMOGLOBIN 8.3 g/dL (12.0-16.0); MEAN CORPUSCULAR HEMOGLOBIN 29.4 pg (28.0-32.0); MEAN CORPUSCULAR VOLUME 85.6 fL (81.0-99.0); PLATELET 116 x1000/uL (130-400); RED BLOOD CELL COUNT 2.84 mill/uL (4.2-5.4); RED CELL DISTRIBUTION WIDTH 17.3 % (11.6-14.6)
[2020-04-06 20:26] LABS: CHLORIDE 115 mEq/L (98-107)
[2020-04-06] MEDS ORDERED: EPOETIN ALFA-EPBX 10,000 UNIT/ML VIAL SUBCUT NR (21:00)
[2020-04-06 22:31] LABS: PLATELET ESTIMATE SLIGHTLY DECREASED
[2020-04-07] VITALS (20 sets, daily range): BP systolic 142–171; BP diastolic 65–100
[2020-04-07] MEDS: FUROSEMIDE 100MG/10ML VIAL IVP SCH (06:16)
[2020-04-07 06:39] LABS: INR 1.1; PROTHROMBIN TIME 11.2 sec (9.6-11.0)
[2020-04-07 06:43] LABS: HEMATOCRIT. 24.9 % (36.0-48.0); HEMOGLOBIN. 8.4 g/dL (12.0-16.0); MEAN CORPUSCULAR HEMOGLOBIN 28.7 pg (28.0-32.0); MEAN CORPUSCULAR VOLUME 85.1 fL (81.0-99.0); MEAN PLATELET VOLUME 8.6 fl (7.4-10.4); PLATELET 113 x1000/uL (130-400); RED BLOOD CELL COUNT 2.92 mill/uL (4.2-5.4); RED CELL DISTRIBUTION WIDTH 17.5 % (11.6-14.6)
[2020-04-07 06:48] LABS: CHLORIDE 115 mEq/L (98-107)
[2020-04-07] MEDS ORDERED: POLYETHYLENE GLYCOL-ELECTROLYTE 4000ML PO NR ×3 (08:00→17:00)
[2020-04-07] MEDS: CITRIC ACID/SODIUM CITRATE SOLN 30ML UDC PO SCH ×3 (08:40→16:34)
[2020-04-07] MEDS: CALCIUM ACETATE 667MG CAPSULE PO SCH ×3 (08:41→16:35)
[2020-04-07] MEDS: HYDRALAZINE HCL 100MG TABLET PO SCH ×3 (08:41→16:34)
[2020-04-07] MEDS: FOLIC ACID/VITAMIN B COMP W-C TABLET PO SCH (08:41)
[2020-04-07] MEDS: NEBIVOLOL HCL 5 MG TABLET PO SCH (08:41)
[2020-04-07] MEDS ORDERED: POTASSIUM CHLORIDE 20MEQ TABLET SR PO SCH (09:00)
[2020-04-07] MEDS ORDERED: POTASSIUM CHLORIDE 20MEQ TABLET SR PO NR (11:15)
[2020-04-07] MEDS ORDERED: CEFAZOLIN 1000MG PREMIX 50 ML IV NR (11:45)
[2020-04-07] MEDS ORDERED: LIDOCAINE HCL 1% 20ML VIAL (Pyxis) INJ ONE (12:37)
[2020-04-07] MEDS ORDERED: SODIUM BICARBONATE 4% (2.4MEQ) 5ML VIAL IV ONE (12:37)
[2020-04-07] MEDS ORDERED: HEPARIN 1000 UNITS/ML 10ML ONE (12:37)
[2020-04-07] MEDS ORDERED: CEFAZOLIN 1000MG PREMIX 50 ML IV ONE (12:42)
[2020-04-07] MEDS ORDERED: FENTANYL CITRATE/PF 50MCG/ML 2ML VIAL ONE (13:19)
[2020-04-07] MEDS ORDERED: FENTANYL CITRATE/PF 50MCG/ML 2ML VIAL IV ONE (14:00)
[2020-04-07 14:08] LABS: PLATELET ESTIMATE SLIGHTLY DECREASED
[2020-04-07] MEDS ORDERED: BISACODYL 5MG TABLET PO NR (16:30)
[2020-04-07] MEDS ORDERED: METOCLOPRAMIDE HCL 10MG/2ML VIAL IV NR (16:30)
[2020-04-07] MEDS: IPRATROPIUM/ALBUTEROL 0.5-3(2.5)MG/3ML NEB HHN SCH (21:11)
[2020-04-08] VITALS (10 sets, daily range): BP systolic 137–175; BP diastolic 65–87
[2020-04-08] MEDS ORDERED: POLYETHYLENE GLYCOL-ELECTROLYTE 4000ML PO NR
[2020-04-08] MEDS: EPOETIN ALFA-EPBX 10,000 UNIT/ML VIAL SUBCUT SCH (00:01)
[2020-04-08 00:08] LABS: HEMATOCRIT 25.6 % (36.0-48.0); HEMOGLOBIN 8.6 g/dL (12.0-16.0)
[2020-04-08] MEDS ORDERED: POTASSIUM CHLORIDE 20MEQ TABLET SR PO SCH (01:00)
[2020-04-08] MEDS: IPRATROPIUM/ALBUTEROL 0.5-3(2.5)MG/3ML NEB HHN SCH ×4 (02:39→21:32)
[2020-04-08 06:53] LABS: INR 1.1; PARTIAL THROMBOPLASTIN TIME 28.4 sec (23.4-31.0); PROTHROMBIN TIME 11.3 sec (9.6-11.0)
[2020-04-08 06:58] LABS: CHLORIDE 122 mEq/L (98-107)
[2020-04-08 06:59] LABS: BASOPHILS % 0.4 % (0.0-2.0); EOSINOPHILS % 2.5 % (0.0-5.0); HEMATOCRIT. 26.9 % (36.0-48.0); HEMOGLOBIN. 9.1 g/dL (12.0-16.0); LYMPHOCYTES % 7.2 % (20.0-50.0); MEAN CORPUSCULAR HEMOGLOBIN 28.6 pg (28.0-32.0); MEAN CORPUSCULAR VOLUME 84.7 fL (81.0-99.0); MEAN PLATELET VOLUME 8.4 fl (7.4-10.4); MONOCYTES % 13.1 % (2.0-8.0); NEUTROPHILS % 76.8 % (40.0-76.0); PLATELET 127 x1000/uL (130-400); RED BLOOD CELL COUNT 3.17 mill/uL (4.2-5.4); RED CELL DISTRIBUTION WIDTH 17.7 % (11.6-14.6)
[2020-04-08 07:22] LABS: HEPATITIS B SURFACE ANTIGEN NEGATIVE
[2020-04-08] MEDS: CALCIUM ACETATE 667MG CAPSULE PO SCH ×3 (08:00→17:38)
[2020-04-08] MEDS: NEBIVOLOL HCL 5 MG TABLET PO SCH (09:00)
[2020-04-08] MEDS: FOLIC ACID/VITAMIN B COMP W-C TABLET PO SCH (09:00)
[2020-04-08] MEDS: CITRIC ACID/SODIUM CITRATE SOLN 30ML UDC PO SCH (09:00)
[2020-04-08] MEDS: HYDRALAZINE HCL 100MG TABLET PO SCH ×3 (09:09→17:38)
[2020-04-08] MEDS: DEXT 5% WATER + KCL 20MEQ/L 1,000 ML IV SCH (10:30)
[2020-04-08] MEDS ORDERED: KETAMINE HCL 50 MG/ML 10ML ONE (11:03)
[2020-04-08] MEDS ORDERED: MIDAZOLAM HCL 2 MG/2 ML VIAL ONE (11:05)
[2020-04-08] MEDS ORDERED: LIDOCAINE HCL/PF 1% 10 MG/ML 5ML VIAL ONE (11:06)
[2020-04-08] MEDS ORDERED: PROPOFOL 200MG/20ML VIAL IV ONE ×5 (11:06→12:22)
[2020-04-08] MEDS ORDERED: FENTANYL CITRATE/PF 50MCG/ML 2ML VIAL ONE (11:13)
[2020-04-08] MEDS ORDERED: ONDANSETRON HCL 4MG/2ML INJ IV PRN (11:15)
[2020-04-08] MEDS ORDERED: SIMETHICONE 40 MG/0.6 ML 30ML ONE (11:25)
[2020-04-09] VITALS (12 sets, daily range): BP systolic 137–162; BP diastolic 65–89
[2020-04-09] MEDS: DEXT 5% WATER + KCL 20MEQ/L 1,000 ML IV SCH (05:06)
[2020-04-09 06:19] LABS: BASOPHILS % 0.3 % (0.0-2.0); EOSINOPHILS % 2.4 % (0.0-5.0); HEMATOCRIT. 25.3 % (36.0-48.0); HEMOGLOBIN. 8.2 g/dL (12.0-16.0); LYMPHOCYTES % 11.3 % (20.0-50.0); MEAN CORPUSCULAR HEMOGLOBIN 28.2 pg (28.0-32.0); MEAN CORPUSCULAR VOLUME 86.7 fL (81.0-99.0); MEAN PLATELET VOLUME 8.7 fl (7.4-10.4); MONOCYTES % 13.5 % (2.0-8.0); NEUTROPHILS % 72.5 % (40.0-76.0); PLATELET 117 x1000/uL (130-400); RED BLOOD CELL COUNT 2.92 mill/uL (4.2-5.4); RED CELL DISTRIBUTION WIDTH 17.8 % (11.6-14.6)
[2020-04-09] MEDS: IPRATROPIUM/ALBUTEROL 0.5-3(2.5)MG/3ML NEB HHN SCH ×2 (08:00→20:27)
[2020-04-09] MEDS: CALCIUM ACETATE 667MG CAPSULE PO SCH ×3 (08:26→18:48)
[2020-04-09] MEDS: FOLIC ACID/VITAMIN B COMP W-C TABLET PO SCH (08:26)
[2020-04-09] MEDS: NEBIVOLOL HCL 5 MG TABLET PO SCH (09:00)
[2020-04-09] MEDS: HYDRALAZINE HCL 100MG TABLET PO SCH ×3 (09:00→18:47)
[2020-04-09] MEDS ORDERED: DEXT 5% WATER 500 ML IV ONE (16:30)
[2020-04-09] MEDS: EPOETIN ALFA-EPBX 10,000 UNIT/ML VIAL SUBCUT SCH (21:30)
[2020-04-10] VITALS: BP 131/73
[2020-04-10] MEDS: DEXT 5% WATER + KCL 20MEQ/L 1,000 ML IV SCH (01:41)
[2020-04-10 02:00] VITALS: BP 127/75
[2020-04-10] MEDS: IPRATROPIUM/ALBUTEROL 0.5-3(2.5)MG/3ML NEB HHN SCH ×2 (02:25→09:40)
[2020-04-10 04:00] VITALS: BP 128/67
[2020-04-10 06:00] VITALS: BP 138/54
[2020-04-10 06:23] LABS: BASOPHILS % 0.2 % (0.0-2.0); EOSINOPHILS % 3.5 % (0.0-5.0); HEMATOCRIT. 26.9 % (36.0-48.0); LYMPHOCYTES % 14.4 % (20.0-50.0); MEAN CORPUSCULAR HEMOGLOBIN 28.6 pg (28.0-32.0); MEAN CORPUSCULAR VOLUME 85.9 fL (81.0-99.0); MEAN PLATELET VOLUME 8.7 fl (7.4-10.4); MONOCYTES % 14.2 % (2.0-8.0); NEUTROPHILS % 67.7 % (40.0-76.0); PLATELET 116 x1000/uL (130-400); RED BLOOD CELL COUNT 3.13 mill/uL (4.2-5.4); RED CELL DISTRIBUTION WIDTH 17.2 % (11.6-14.6)
[2020-04-10 08:00] VITALS: BP 142/76
[2020-04-10] MEDS: FOLIC ACID/VITAMIN B COMP W-C TABLET PO SCH (08:41)
[2020-04-10] MEDS: NEBIVOLOL HCL 5 MG TABLET PO SCH (08:41)
[2020-04-10] MEDS: CALCIUM ACETATE 667MG CAPSULE PO SCH (08:41)
[2020-04-10] MEDS: HYDRALAZINE HCL 100MG TABLET PO SCH (08:42)
[2020-04-10 10:00] VITALS: BP 145/69
== END 2020-04-10 12:30 | disposition home or self-care (01) | DRG 291 ==
LOC: EEVIPCON 17:59 → 6EST 17:59 → 8WST 23:51 → 5EST 04-05 15:09
PROVIDERS: ADMIT Internal Medicine Geriatric Medicine; ATTEND Internal Medicine Geriatric Medicine
PROC: 30233N1 Transfusion of Nonautologous Red Blood Cells into Peripheral Vein, Percutaneous Approach (ICD-10-PCS; principal; 2020-04-08)
PROC: 0DB68ZX Excision of Stomach, Via Natural or Artificial Opening Endoscopic, Diagnostic (ICD-10-PCS; 2020-04-08)
PROC: 0DBK8ZX Excision of Ascending Colon, Via Natural or Artificial Opening Endoscopic, Diagnostic (ICD-10-PCS; 2020-04-08)
PROC: 0DBL8ZX Excision of Transverse Colon, Via Natural or Artificial Opening Endoscopic, Diagnostic (ICD-10-PCS; 2020-04-08)
PROC: 0DBN8ZX Excision of Sigmoid Colon, Via Natural or Artificial Opening Endoscopic, Diagnostic (ICD-10-PCS; 2020-04-08)
PROC: 5A1D70Z Performance of Urinary Filtration, Intermittent, Less than 6 Hours Per Day (ICD-10-PCS; 2020-04-08)
PROC: 5A1D70Z Performance of Urinary Filtration, Intermittent, Less than 6 Hours Per Day (ICD-10-PCS; 2020-04-08)
PROC: 30233N1 Transfusion of Nonautologous Red Blood Cells into Peripheral Vein, Percutaneous Approach (ICD-10-PCS; 2020-04-08)
PROC: 0JH63XZ Insertion of Tunneled Vascular Access Device into Chest Subcutaneous Tissue and Fascia, Percutaneous Approach (ICD-10-PCS; 2020-04-08)
PROC: 05HM33Z Insertion of Infusion Device into Right Internal Jugular Vein, Percutaneous Approach (ICD-10-PCS; 2020-04-08)
PROC: B5131ZA Fluoroscopy of Right Jugular Veins using Low Osmolar Contrast, Guidance (ICD-10-PCS; 2020-04-08)
PROC: B54MZZA Ultrasonography of Right Upper Extremity Veins, Guidance (ICD-10-PCS; 2020-04-08)
DX: I13.2 Hypertensive heart and chronic kidney disease with heart failure and with stage 5 chronic kidney disease, or end stage renal disease (principal); N18.6 End stage renal disease; J96.90 Respiratory failure, unspecified, unspecified whether with hypoxia or hypercapnia; I50.33 Acute on chronic diastolic (congestive) heart failure; E87.2 Acidosis; E44.0 Moderate protein-calorie malnutrition; E87.1 Hypo-osmolality and hyponatremia; D63.1 Anemia in chronic kidney disease; E87.6 Hypokalemia; E78.5 Hyperlipidemia, unspecified; K29.80 Duodenitis without bleeding; E04.2 Nontoxic multinodular goiter; F41.1 Generalized anxiety disorder; K29.70 Gastritis, unspecified, without bleeding; K57.90 Diverticulosis of intestine, part unspecified, without perforation or abscess without bleeding; K64.8 Other hemorrhoids; K63.5 Polyp of colon; Z20.828 Contact with and (suspected) exposure to other viral communicable diseases; M81.0 Age-related osteoporosis without current pathological fracture; Z91.15 Patient's noncompliance with renal dialysis; Z79.899 Other long term (current) drug therapy; Z68.26 Body mass index [BMI] 26.0-26.9, adult
CPT/HCPCS: 36415; 36558; 36600; 71045; 76937; 77001; 80048; 80053; 82270; 82375; 82378; 82728; 82805; 83540; 83550; 84132; 84484; 85014; 85018; 85025; 85027; 86705; 86706; 86803; 86850; 86900; 86920; 87340; 87426; 88305; 88313; 94640; 97162; 99152; 99153; J0690; J0885; J1644; J1940; J2250; J2704; J2765; J3010; J3480; J3490; J7060; P9016; G0500

== ENCOUNTER → 2020-04-04 | Outpatient (CLI) | payer BC ==
[~2020-04-04] MED LIST changes: +NEBI10TA2 MT; +SODI100G3 MC
[2020-04-04 15:13] LABS: BASOPHILS % 0.6 % (0.0-2.0); EOSINOPHILS % 2.3 % (0.0-5.0); LYMPHOCYTES % 14.2 % (20.0-50.0); MEAN CORPUSCULAR HEMOGLOBIN 30.1 pg (28.0-32.0); MEAN PLATELET VOLUME 8.3 fl (7.4-10.4); MONOCYTES % 9.1 % (2.0-8.0); NEUTROPHILS % 73.8 % (40.0-76.0); PLATELET 129 x1000/uL (130-400); RED BLOOD CELL COUNT 1.59 mill/uL (4.2-5.4)
[2020-04-04 16:15] LABS: HEMATOCRIT. 14.8 % (36.0-48.0); HEMOGLOBIN. 4.8 g/dL (12.0-16.0)
== END | disposition home or self-care (01) ==
LOC: LAB 14:38
PROVIDERS: ATTEND Internal Medicine Nephrology
DX: N18.5 Chronic kidney disease, stage 5 (principal)
CPT/HCPCS: 36415; 80048; 85025

== ENCOUNTER 2020-04-19 12:59 | Inpatient (IN) | payer BC ==
[~2020-04-19] VITALS: Ht 154.9 cm; Wt 60.3 kg
[~2020-04-19 12:59] MED LIST changes: +NEBI10TA2 MT; -NEBI2.5T2 MT; +SODI100G3 MC
[2020-04-19] MEDS ORDERED: DIPHENHYDRAMINE 50MG/ML VIAL IV PRN (13:15)
[2020-04-19] MEDS ORDERED: CLONIDINE 0.1MG TABLET PO PRN (13:15)
[2020-04-19] MEDS ORDERED: ONDANSETRON HCL 4MG/2ML INJ IV PRN (13:15)
[2020-04-19] MEDS ORDERED: DOCUSATE SODIUM 100MG CAPSULE PO PRN (13:15)
[2020-04-19] MEDS: HYDRALAZINE HCL 100MG TABLET PO SCH ×2 (14:00→22:00)
[2020-04-19 14:50] LABS: BASOPHILS % 0.4 % (0.0-2.0); EOSINOPHILS % 0.6 % (0.0-5.0); MEAN CORPUSCULAR HEMOGLOBIN 29.6 pg (28.0-32.0); MEAN CORPUSCULAR VOLUME 90.8 fL (81.0-99.0); MEAN PLATELET VOLUME 8.4 fl (7.4-10.4); MONOCYTES % 7.3 % (2.0-8.0); NEUTROPHILS % 82.7 % (40.0-76.0); PLATELET 82 x1000/uL (130-400); RED CELL DISTRIBUTION WIDTH 18.6 % (11.6-14.6)
[2020-04-19 14:51] LABS: PROTHROMBIN TIME 10.9 sec (9.6-11.0)
[2020-04-19 14:54] LABS: PHOSPHORUS 3.9 mg/dL (2.5-4.9)
[2020-04-19 14:57] LABS: HEMOGLOBIN. 5.3 g/dL (12.0-16.0)
[2020-04-19 14:58] LABS: HEMATOCRIT. 16.3 % (36.0-48.0)
[2020-04-19] MEDS ORDERED: DEXT 5%/0.45% NACL 1000ML 1,000 ML IV ONE (19:30)
[2020-04-19] MEDS ORDERED: BISACODYL 5MG TABLET PO ONE (20:00)
[2020-04-19] MEDS ORDERED: METOCLOPRAMIDE HCL 5MG TABLET PO ONE (20:00)
[2020-04-19 20:27] VITALS: BP 136/48
[2020-04-19 20:55] LABS: FOLIC ACID (FOLATE) SERUM 18.2 ng/mL (>5.38)
[2020-04-19] MEDS: METOCLOPRAMIDE HCL 5MG TABLET PO SCH ×2 (21:59→23:40)
[2020-04-19] MEDS: NEBIVOLOL HCL 5 MG TABLET PO SCH (21:59)
[2020-04-19 22:30] VITALS: BP 136/48
[2020-04-19] MEDS: BISACODYL 5MG TABLET PO SCH (23:38)
[2020-04-20] VITALS (16 sets, daily range): BP systolic 104–138; BP diastolic 45–81
[2020-04-20 01:00] LABS: HEMOGLOBIN 7.4 g/dL (12.0-16.0)
[2020-04-20] MEDS: BISACODYL 5MG TABLET PO SCH ×4 (04:12→16:48)
[2020-04-20] MEDS: METOCLOPRAMIDE HCL 5MG TABLET PO SCH ×4 (04:12→16:48)
[2020-04-20] MEDS ORDERED: SORBITOL 70% SOLN 30ML PO SCH ×3 (04:30→12:30)
[2020-04-20] MEDS: PANTOPRAZOLE SODIUM 40 MG/VIAL IV SCH (08:18)
[2020-04-20] MEDS: NEBIVOLOL HCL 5 MG TABLET PO SCH ×2 (08:19→21:06)
[2020-04-20] MEDS: HYDRALAZINE HCL 100MG TABLET PO SCH ×3 (08:19→21:06)
[2020-04-20 09:04] LABS: BASOPHILS % 0.5 % (0.0-2.0); EOSINOPHILS % 2.5 % (0.0-5.0); HEMOGLOBIN. 8.1 g/dL (12.0-16.0); LYMPHOCYTES % 17.9 % (20.0-50.0); MEAN CORPUSCULAR HEMOGLOBIN 29.3 pg (28.0-32.0); MEAN CORPUSCULAR VOLUME 86.9 fL (81.0-99.0); MEAN PLATELET VOLUME 8.5 fl (7.4-10.4); MONOCYTES % 14.4 % (2.0-8.0); NEUTROPHILS % 64.7 % (40.0-76.0); PLATELET 71 x1000/uL (130-400); RED BLOOD CELL COUNT 2.77 mill/uL (4.2-5.4); RED CELL DISTRIBUTION WIDTH 16.1 % (11.6-14.6)
[2020-04-20 09:15] LABS: PROTHROMBIN TIME 10.3 sec (9.6-11.0)
[2020-04-20 15:42] LABS: HEMATOCRIT 26.6 % (36.0-48.0)
[2020-04-20 22:48] LABS: HEMATOCRIT 26.8 % (36.0-48.0); HEMOGLOBIN 9.1 g/dL (12.0-16.0)
[2020-04-21] VITALS (11 sets, daily range): BP systolic 100–186; BP diastolic 46–88
[2020-04-21 00:44] LABS: HEMATOCRIT 25.5 % (36.0-48.0); HEMOGLOBIN 8.6 g/dL (12.0-16.0)
[2020-04-21] MEDS: HYDRALAZINE HCL 100MG TABLET PO SCH ×2 (06:00→14:00)
[2020-04-21 08:54] LABS: BASOPHILS % 0.6 % (0.0-2.0); HEMATOCRIT. 24.2 % (36.0-48.0); HEMOGLOBIN. 8.2 g/dL (12.0-16.0); LYMPHOCYTES % 16.8 % (20.0-50.0); MEAN CORPUSCULAR HEMOGLOBIN 29.7 pg (28.0-32.0); MEAN CORPUSCULAR VOLUME 87.8 fL (81.0-99.0); MEAN PLATELET VOLUME 8.6 fl (7.4-10.4); MONOCYTES % 12.9 % (2.0-8.0); NEUTROPHILS % 66.7 % (40.0-76.0); PLATELET 97 x1000/uL (130-400); RED BLOOD CELL COUNT 2.76 mill/uL (4.2-5.4); RED CELL DISTRIBUTION WIDTH 16.7 % (11.6-14.6)
[2020-04-21] MEDS: NEBIVOLOL HCL 5 MG TABLET PO SCH (09:00)
[2020-04-21] MEDS ORDERED: FOLIC ACID/VITAMIN B COMP W-C TABLET PO SCH (09:00)
[2020-04-21 09:12] LABS: PROTHROMBIN TIME 10.4 sec (9.6-11.0)
[2020-04-21] MEDS: PANTOPRAZOLE SODIUM 40 MG/VIAL IV SCH (09:37)
[2020-04-21] MEDS ORDERED: PROPOFOL 200MG/20ML VIAL IV ONE (11:20)
[2020-04-21] MEDS: FERROUS SULFATE 325MG TABLET PO SCH ×2 (14:02→17:15)
[2020-04-21 15:19] LABS: HEMATOCRIT 29.8 % (36.0-48.0); HEMOGLOBIN 9.9 g/dL (12.0-16.0)
[2020-04-21 22:08] LABS: HEMOGLOBIN 11.4 g/dL (12.0-16.0)
== END 2020-04-21 23:19 | disposition home or self-care (01) | DRG 919 ==
LOC: ER 13:19 → 8WST 17:04 → EDBEDREQTM 17:10 → EDBEDREQ 17:10 → ENRESERV 19:56 → 3WST 23:20
PROVIDERS: ADMIT Nurse Practitioner Family; ATTEND Nurse Practitioner Family
PROC: 30233N1 Transfusion of Nonautologous Red Blood Cells into Peripheral Vein, Percutaneous Approach (ICD-10-PCS; 2020-04-19)
PROC: 0DJD8ZZ Inspection of Lower Intestinal Tract, Via Natural or Artificial Opening Endoscopic (ICD-10-PCS; principal; 2020-04-21)
PROC: 5A1D70Z Performance of Urinary Filtration, Intermittent, Less than 6 Hours Per Day (ICD-10-PCS; 2020-04-21)
DX: K91.840 Postprocedural hemorrhage of a digestive system organ or structure following a digestive system procedure (principal); N18.6 End stage renal disease; I50.33 Acute on chronic diastolic (congestive) heart failure; E44.1 Mild protein-calorie malnutrition; I13.2 Hypertensive heart and chronic kidney disease with heart failure and with stage 5 chronic kidney disease, or end stage renal disease; D50.9 Iron deficiency anemia, unspecified; D63.1 Anemia in chronic kidney disease; K57.90 Diverticulosis of intestine, part unspecified, without perforation or abscess without bleeding; F41.9 Anxiety disorder, unspecified; M19.90 Unspecified osteoarthritis, unspecified site; E04.2 Nontoxic multinodular goiter; E78.5 Hyperlipidemia, unspecified; F41.1 Generalized anxiety disorder; M81.0 Age-related osteoporosis without current pathological fracture; Z20.828 Contact with and (suspected) exposure to other viral communicable diseases; Z87.19 Personal history of other diseases of the digestive system; Z99.2 Dependence on renal dialysis; Z88.8 Allergy status to other drugs, medicaments and biological substances; Z91.048 Other nonmedicinal substance allergy status; Z79.899 Other long term (current) drug therapy; Z98.891 History of uterine scar from previous surgery; Z68.25 Body mass index [BMI] 25.0-25.9, adult
CPT/HCPCS: 36415; 71045; 78278; 80048; 80076; 82607; 82728; 82746; 83540; 83550; 83735; 84100; 85014; 85018; 85025; 85044; 86850; 86900; 86920; 87426; 93005; 93970; 99291; A9560; C9113; J2704; J8597; P9016; P9021

== ENCOUNTER → 2023-03-31 | Day surgery (SDC) | payer MEDICARE, BC, OTHER ==
[~2023-03-31] VITALS: Ht 154.9 cm; Wt 59.0 kg
[~2023-03-31] MED LIST changes: +ALBU18HF2 IH; +BACITRACIN 15GM TUBE TOP ONE; +BUPIVACAINE HCL/PF 0.5% (5MG/ML) 10ML ONE; +FENTANYL CITRATE/PF 50MCG/ML 2ML VIAL IV PRN; +FENTANYL CITRATE/PF 50MCG/ML 2ML VIAL ONE; +FOLI-43 PO; +HEPARIN SODIUM 1,000 UNIT/1ML VIAL IV ONE; +LIDOCAINE HCL 1% 20ML VIAL (Pyxis) INJ ONE; +MIDAZOLAM HCL 2 MG/2 ML VIAL ONE; +POLYMYXIN B SULFATE 500000 UNITS/VIAL ONE; +PROPOFOL 200MG/20ML VIAL IV ONE; +SODIUM CHLORIDE 0.9% 500 ML IV SCH; +THROMBIN (BOVINE) 5000 UNITS/VIAL TOP ONE
[2023-03-31 11:14] LABS: HEMATOCRIT. 32.6 % (36.0-48.0); HEMOGLOBIN. 10.8 g/dL (12.0-16.0); MEAN CORPUSCULAR HEMOGLOBIN 32.8 pg (28.0-32.0); MEAN CORPUSCULAR HGB CONC 33.2 g/dL (31.0-37.0); MEAN CORPUSCULAR VOLUME 98.9 fL (81.0-99.0); MEAN PLATELET VOLUME 8.1 fl (7.4-10.4); PLATELET 126 x1000/uL (130-400); RED BLOOD CELL COUNT 3.29 mill/uL (4.2-5.4); RED CELL DISTRIBUTION WIDTH 18.1 % (11.6-14.6); WHITE BLOOD COUNT 3.6 x1000/uL (4.5-11.0)
[2023-03-31 11:29] LABS: DIFFERENTIAL COMMENT 1
[2023-03-31 11:38] LABS: PARTIAL THROMBOPLASTIN TIME 25.1 sec (23.4-31.0); PROTHROMBIN TIME 10.5 sec (9.6-11.0)
[2023-03-31 12:12] LABS: PLATELET ESTIMATE SLIGHTLY DECREASED
[2023-03-31 12:26] LABS: POTASSIUM 4.6 mEq/L (3.5-5.1)
[2023-03-31 12:30] LABS: CALCIUM 9.3 mg/dL (8.5-10.1); CREATININE 3.3 mg/dL (0.6-1.3)
[2023-03-31 13:54] VITALS: BP 141/58; PULSE 71; RESP 18
== END | disposition home or self-care (01) ==
LOC: OR 10:40
PROVIDERS: ATTEND Surgery Vascular Surgery
DX: I12.0 Hypertensive chronic kidney disease with stage 5 chronic kidney disease or end stage renal disease (principal); N18.6 End stage renal disease; F41.9 Anxiety disorder, unspecified; Z79.899 Other long term (current) drug therapy; Z88.8 Allergy status to other drugs, medicaments and biological substances; Z98.890 Other specified postprocedural states; Z82.49 Family history of ischemic heart disease and other diseases of the circulatory system
CPT/HCPCS: 80048; 85025; 85610; 85730; 36415; 93005; 36830; 37607; J3010; J3490 ×4; J1644; J2250; J2704; Z7610 ×24; J7030; C1768

== ENCOUNTER 2025-05-18 13:22 | Emergency (ER) | payer MEDICARE, OTHER ==
[~2025-05-18] VITALS: Ht 160 cm; Wt 60.0 kg
[~2025-05-18 13:22] MED LIST changes: -BACITRACIN 15GM TUBE TOP ONE; -BUPIVACAINE HCL/PF 0.5% (5MG/ML) 10ML ONE; -CALC667T6 MT; -EPOE200014 SQ; -FENTANYL CITRATE/PF 50MCG/ML 2ML VIAL IV PRN; -FENTANYL CITRATE/PF 50MCG/ML 2ML VIAL ONE; -HEPARIN SODIUM 1,000 UNIT/1ML VIAL IV ONE; +HYDR100T11 MT; -HYDR100T26 MT; -LIDOCAINE HCL 1% 20ML VIAL (Pyxis) INJ ONE; -MIDAZOLAM HCL 2 MG/2 ML VIAL ONE; +NEBI10TA10 MT; -NEBI10TA2 MT; -POLYMYXIN B SULFATE 500000 UNITS/VIAL ONE; -PROPOFOL 200MG/20ML VIAL IV ONE; -PROT20 MT; -SODI100G3 MC; -SODIUM CHLORIDE 0.9% 500 ML IV SCH; -THROMBIN (BOVINE) 5000 UNITS/VIAL TOP ONE
[2025-05-18 13:58] VITALS: TEMP 36.7; O2SAT 98
[2025-05-18 14:26] VITALS: BP 179/96; PULSE 79; RESP 23; O2SAT 97
[2025-05-18 15:11] LABS: HEMATOCRIT. 36.2 % (36.0-48.0); HEMOGLOBIN. 12.1 g/dL (12.0-16.0); MEAN PLATELET VOLUME 8.3 fl (7.4-10.4); PLATELET 80 x1000/uL (130-400); RED BLOOD CELL COUNT 3.28 mill/uL (4.2-5.4); RED CELL DISTRIBUTION WIDTH 18.3 % (11.6-14.6)
[2025-05-18 15:16] LABS: CREATININE 3.5 mg/dL (0.6-1.0); UREA NITROGEN BLOOD 9.0 mg/dL (9-23)
[2025-05-18 15:17] LABS: TROPONIN I HIGH SENSITIVITY 22 ng/L (3.0-34)
[2025-05-18 18:38] LABS: BAND% 2.0 % (1.0-6.0); EOSINOPHILS % MANUAL 1.0 % (0.0-5.0); LYMPHOCYTES % MANUAL 17.0 % (20.0-60.0); MONOCYTES % MANUAL 16.0 % (2.0-8.0); NEUTROPHILS % MANUAL 64.0 % (45.0-75.0); PLATELET ESTIMATE DECREASED
== END 2025-05-18 15:45 | disposition home or self-care (01) ==
LOC: ER 13:22
DX: R06.03 Acute respiratory distress (principal); I13.2 Hypertensive heart and chronic kidney disease with heart failure and with stage 5 chronic kidney disease, or end stage renal disease; N18.6 End stage renal disease; Z79.899 Other long term (current) drug therapy; Z88.8 Allergy status to other drugs, medicaments and biological substances; Z91.048 Other nonmedicinal substance allergy status; Z99.2 Dependence on renal dialysis
CPT/HCPCS: 36415; 71045; 80048; 84484; 85025; 93005; 99285